=== PATIENT | female | born 1985 | race Two or more races ===

== ENCOUNTER 2019-12-14 01:41 | Emergency (ER) | payer OTHER ==
[~2019-12-14] VITALS: Ht 160 cm; Wt 70.3 kg
[2019-12-14] MEDS ORDERED: SYNTHROID50 MCG (01:53)
[2019-12-14] MEDS ORDERED: PROMETRIUM200 MG (01:53)
[2019-12-14] MEDS ORDERED: PRENATABS RX T1 EACH (01:54)
== END 2019-12-14 07:40 | disposition home or self-care (01) ==
LOC: ER 01:41
DX: O20.0 Threatened abortion (principal)

== ENCOUNTER 2020-04-07 13:03 | Outpatient (CLI) | payer OTHER ==
[~2020-04-07 13:03] MED LIST: PRENATABS RX T1 EACH; PROMETRIUM200 MG; SYNTHROID50 MCG
== END 2020-04-07 14:16 | disposition home or self-care (01) ==
LOC: NST 13:03
DX: Z34.83 Encounter for supervision of other normal pregnancy, third trimester (principal)

== ENCOUNTER 2020-04-28 12:47 | Outpatient (CLI) | payer OTHER | END 2020-04-28 13:29 | disposition home or self-care (01) | LOC: NST 12:47 | PROVIDERS: ATTEND Obstetrics & Gynecology Maternal & Fetal Medicine | DX: Z34.83 Encounter for supervision of other normal pregnancy, third trimester (principal) ==

== ENCOUNTER 2020-06-12 15:28 | Outpatient (CLI) | payer OTHER | END 2020-06-12 16:26 | disposition home or self-care (01) | LOC: NST 15:28 | PROVIDERS: ATTEND Obstetrics & Gynecology | DX: Z34.83 Encounter for supervision of other normal pregnancy, third trimester (principal) ==

== ENCOUNTER 2020-06-18 10:30 | Inpatient (IN) | payer OTHER ==
[~2020-06-18] VITALS: Ht 160 cm; Wt 3.2 kg
== END 2020-07-13 11:56 | disposition home or self-care (01) | DRG 788 ==
LOC: OB/GYN 07-03 10:30 → O/R 07-10 13:00 → SURG-SUITE 07-10 16:02
PROVIDERS: ADMIT Obstetrics & Gynecology Maternal & Fetal Medicine; ATTEND Obstetrics & Gynecology Maternal & Fetal Medicine
PROC: 4A1HXCZ Monitoring of Products of Conception, Cardiac Rate, External Approach (ICD-10-PCS; 2020-07-10)
PROC: 10D00Z1 Extraction of Products of Conception, Low, Open Approach (ICD-10-PCS; principal; 2020-07-10 14:00)
DX: O64.1XX0 Obstructed labor due to breech presentation, not applicable or unspecified (principal); Z3A.39 39 weeks gestation of pregnancy; Z37.0 Single live birth; Z20.828 Contact with and (suspected) exposure to other viral communicable diseases

== ENCOUNTER 2022-07-20 07:16 | Day surgery (SDC) | payer OTHER ==
[~2022-07-20] VITALS: Ht 160 cm; Wt 74.8 kg
[~2022-07-20 07:16] MED LIST changes: +TOPROL XL50 M1 PO
== END 2022-07-20 16:05 | disposition home or self-care (01) ==
LOC: CIR.AMB 07:16
PROVIDERS: ATTEND Obstetrics & Gynecology Maternal & Fetal Medicine
DX: N75.8 Other diseases of Bartholin's gland (principal); Z20.822 Contact with and (suspected) exposure to COVID-19